=== PATIENT | female | born 1980 | race Caucasian/White ===

== ENCOUNTER 2021-12-30 18:40 | Emergency (ER) | payer OTHER ==
[~2021-12-30] VITALS: Ht 180.3 cm; Wt 113.4 kg
[~2021-12-30 18:40] MED LIST: BUTASPCAF PO; EXPECTA PRENAT1 EACH PO; LABE100 PO; ONDA4ODT MM; PANT40 PO
== END 2021-12-30 20:31 | disposition home or self-care (01) ==
LOC: ER 18:40
DX: G43.909 Migraine, unspecified, not intractable, without status migrainosus (principal)
CPT/HCPCS: 36415; J1200; J1790; J1885; J2405; J7030

== ENCOUNTER 2022-12-10 06:52 | Day surgery (SDC) | payer OTHER ==
[2022-12-08 11:06] LABS: BASOPHILS ABSOLUTE AUTO 0.05 K/mm3 (0.00-0.23); BASOPHILS PERCENT AUTO 1 % (0-2); EOSINOPHILS ABSOLUTE AUTO 0.17 K/mm3 (0.00-0.68); EOSINOPHILS PERCENT AUTO 2 % (0-6); Hematocrit 43.1 % (33.0-51.0); Hemoglobin 14.1 g/dL (11.5-16.0); IMMATURE GRAN ABSOLUTE AUTO 0.02 K/mm3 (0.00-0.10); IMMATURE GRAN PERCENT AUTO 0 % (0-1); LYMPHOCYTES ABSOLUTE AUTO 2.91 K/mm3 (0.84-5.20); LYMPHOCYTES PERCENT AUTO 35 % (21-46); MONOCYTES ABSOLUTE AUTO 0.55 K/mm3 (0.16-1.47); MONOCYTES PERCENT AUTO 7 % (4-13); Mean Corpuscular HGB 26.2 pg (26.0-34.0); Mean Corpuscular HGB Conc 32.7 g/dL (31.5-36.5); Mean Corpuscular Volume 80 fL (80-100); Mean Platelet Volume 10.6 fL (9.1-12.4); NEUTROPHILS ABSOLUTE AUTO 4.64 K/mm3 (1.96-9.15); NEUTROPHILS PERCENT AUTO 56 % (41-73); Platelet Count 318 K/mm3 (150-400); RDW Coefficient Variation 23.4 % (11.7-14.2); RDW Standard Deviation 65.1 fL (35.1-46.3); Red Blood Cell Count 5.39 M/mm3 (3.80-5.20); White Blood Cell Count 8.34 K/mm3 (4.00-11.30)
[~2022-12-10] VITALS: Ht 180.3 cm; Wt 129.2 kg
[2022-12-10] VITALS (20 sets, daily range): BP systolic 109–140; BP diastolic 57–79
--- NOTE | 2022-12-10 19:27 | NUR ---
SHIFT SUMMARY PT A&OX4, VSS/RA, PATY PO, VOIDING, AMB SBA TO BRP/UP TO CHAIR, PAIN MANAGED. S/P RACHEL TOTAL LAP HYSTER, 4 EXOFIN SITES CDI. REPORT TO JUSTIN GARRISON.
[2022-12-11 04:10] VITALS: BP 119/69
[2022-12-11 04:27] LABS: BASOPHILS ABSOLUTE AUTO 0.02 K/mm3 (0.00-0.23); BASOPHILS PERCENT AUTO 0 % (0-2); EOSINOPHILS ABSOLUTE AUTO 0.01 K/mm3 (0.00-0.68); EOSINOPHILS PERCENT AUTO 0 % (0-6); IMMATURE GRAN ABSOLUTE AUTO 0.05 K/mm3 (0.00-0.10); IMMATURE GRAN PERCENT AUTO 0 % (0-1); LYMPHOCYTES ABSOLUTE AUTO 2.49 K/mm3 (0.84-5.20); LYMPHOCYTES PERCENT AUTO 18 % (21-46); MONOCYTES ABSOLUTE AUTO 0.92 K/mm3 (0.16-1.47); MONOCYTES PERCENT AUTO 7 % (4-13); Mean Corpuscular HGB 25.9 pg (26.0-34.0); Mean Corpuscular HGB Conc 31.7 g/dL (31.5-36.5); Mean Corpuscular Volume 82 fL (80-100); Mean Platelet Volume 10.8 fL (9.1-12.4); NEUTROPHILS ABSOLUTE AUTO 10.74 K/mm3 (1.96-9.15); NEUTROPHILS PERCENT AUTO 75 % (41-73); Platelet Count 294 K/mm3 (150-400); RDW Coefficient Variation 23.6 % (11.7-14.2); RDW Standard Deviation 68.1 fL (35.1-46.3); Red Blood Cell Count 5.01 M/mm3 (3.80-5.20); White Blood Cell Count 14.23 K/mm3 (4.00-11.30)
--- NOTE | 2022-12-11 04:45 | NUR ---
SHIFT SUMMARY POD1 ROBOTIC LAP HYSTER. X4 LAP SITES. JAELYN, C/D/I. VSS. PT SLEPT WELL T/O THE NIGHT. PT TOLLERATING PO INTAKE W/O N/V. VOIDING W/O DIFFICULTY. AMBULATING INDEPENDENTLY. PT REPORTS SCANT VAGINAL BLEEDING. PT MEDICATED FOR PAIN WITH PERCOCET. NO ACUTE EVENTS NOTED T/O THE NIGHT. THE PATIENT IS CURRENTLY SLEEPING, IN NO DISTRESS, CALL LIGHT IN REACH
[2022-12-11 07:50] VITALS: BP 127/74
[2022-12-11] MEDS ORDERED: IBUP400 PO (10:45)
[2022-12-11] MEDS ORDERED: Percocet 5-3251 EACH PO (10:46)
[2022-12-11] MEDS ORDERED: PROM25 PO (10:46)
[2022-12-11] MEDS ORDERED: SIME80CH PO (10:46)
--- NOTE | 2022-12-11 11:49 | NUR ---
DISCHARGE SUMMARY PT A&OX4, VSS/RA, PATY PO, VOIDING, AMB INDEPENDENTLY/UP TO CHAIR/DRESSED SELF, PAIN MANAGED, IV DC'D. DC INS PROVIDED. PT REP UNDERSTANDING THOSE INSTRUCTIONS. LEFT FLOOR VIA WC WITH LOGISTICS CLERK TO GO HOME WITH , WITH ALL POSSESSIONS INCLUDING DC PACKET.
== END 2022-12-11 11:36 | disposition home or self-care (01) ==
LOC: ORSCMMR 06:52 → ORD 08:00 → SURS 12:51 → ORSCMMR 12-11 11:36
PROVIDERS: Obstetrics & Gynecology
PROC: 0UT9FZZ Resection of Uterus, Via Natural or Artificial Opening With Percutaneous Endoscopic Assistance (ICD-10-PCS; principal; 2022-12-10 08:00)
PROC: 0UT7FZZ Resection of Bilateral Fallopian Tubes, Via Natural or Artificial Opening With Percutaneous Endoscopic Assistance (ICD-10-PCS; principal; 2022-12-10 08:00)
PROC: 8E0W4CZ Robotic Assisted Procedure of Trunk Region, Percutaneous Endoscopic Approach (ICD-10-PCS; principal; 2022-12-10 08:00)
PROC: 0U5F4ZZ Destruction of Cul-de-sac, Percutaneous Endoscopic Approach (ICD-10-PCS; principal; 2022-12-10 08:00)
DX: N92.1 Excessive and frequent menstruation with irregular cycle (principal); N80.00 Endometriosis of the uterus, unspecified; D50.0 Iron deficiency anemia secondary to blood loss (chronic); O34.22 Maternal care for cesarean scar defect (isthmocele); N94.6 Dysmenorrhea, unspecified; E66.9 Obesity, unspecified; Z68.39 Body mass index [BMI] 39.0-39.9, adult
CPT/HCPCS: 58571; 58662; S2900; 36415; 84702; 85025; 86850; 86900; 86901; 88305; 88307; A9270; J0690; J1100; J1885; J2250; J2405; J2704; J2795; J3010; J7120

== ENCOUNTER → 2023-06-23 | Outpatient (CLI) | payer OTHER ==
[~2023-06-23] MED LIST changes: +IBUP400 PO; +PROM25 PO; +Percocet 5-3251 EACH PO; +SIME80CH PO
[2023-06-23 16:23] LABS: BASOPHILS ABSOLUTE AUTO 0.03 K/mm3 (0.00-0.23); BASOPHILS PERCENT AUTO 0 % (0-2); EOSINOPHILS ABSOLUTE AUTO 0.13 K/mm3 (0.00-0.68); EOSINOPHILS PERCENT AUTO 2 % (0-6); Hematocrit 43.2 % (33.0-51.0); Hemoglobin 14.2 g/dL (11.5-16.0); IMMATURE GRAN ABSOLUTE AUTO 0.03 K/mm3 (0.00-0.10); IMMATURE GRAN PERCENT AUTO 0 % (0-1); LYMPHOCYTES ABSOLUTE AUTO 2.72 K/mm3 (0.84-5.20); LYMPHOCYTES PERCENT AUTO 35 % (21-46); MONOCYTES ABSOLUTE AUTO 0.46 K/mm3 (0.16-1.47); MONOCYTES PERCENT AUTO 6 % (4-13); Mean Corpuscular HGB 29.5 pg (26.0-34.0); Mean Corpuscular HGB Conc 32.9 g/dL (31.5-36.5); Mean Corpuscular Volume 90 fL (80-100); Mean Platelet Volume 11.1 fL (9.1-12.4); NEUTROPHILS ABSOLUTE AUTO 4.36 K/mm3 (1.96-9.15); NEUTROPHILS PERCENT AUTO 56 % (41-73); Platelet Count 308 K/mm3 (150-400); RDW Coefficient Variation 13.2 % (11.7-14.2); RDW Standard Deviation 43.1 fL (35.1-46.3); Red Blood Cell Count 4.82 M/mm3 (3.80-5.20); White Blood Cell Count 7.73 K/mm3 (4.00-11.30)
[2023-06-23 17:19] LABS: Percent Saturation 25.8 % (15.0-50.0)
== END ==
LOC: LAB SHORT 15:22
PROVIDERS: Internal Medicine Hematology & Oncology
DX: D50.9 Iron deficiency anemia, unspecified (principal)
CPT/HCPCS: 82728; 83540; 83550; 85025